=== PATIENT | male | born 1990 | race Two or more races ===

== ENCOUNTER 2025-04-05 13:07 | Emergency (ER) | payer MEDICAID, SELFPAY ==
[2025-04-05 13:46] VITALS: BP 128/73; PULSE 104; RESP 19; TEMP 36.8; O2SAT 96
[2025-04-05 13:54] VITALS: BMI 21.4
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
[2025-04-05] MEDS: FLUORESCEIN SOD 1 MG STRP RIGHT EYE ×2 (15:01→16:24)
[2025-04-05] MEDS: TETRACAINE PF OP SOL 0.5% 4 ML DRPETTE 1 DROP RIGHT EYE (15:01)
== END 2025-04-05 18:13 | disposition home or self-care (01) ==
PROVIDERS: Emergency Provider Emergency Medicine; PCP Family Medicine
DX: S05.01XA Injury of conjunctiva and corneal abrasion without foreign body, right eye, initial encounter (principal); W25.XXXA Contact with sharp glass, initial encounter
CPT/HCPCS: 99283

== ENCOUNTER 2025-04-06 16:19 | Emergency (ER) | payer MEDICAID, SELFPAY ==
[2025-04-06 16:27] VITALS: BP 123/61; PULSE 116; RESP 20; TEMP 37.6; O2SAT 96
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
[2025-04-06] MEDS: TOBRAMYCIN OP SOL 0.3% 5 ML BTL RIGHT EYE (16:39)
== END 2025-04-06 17:01 | disposition home or self-care (01) ==
LOC: SERX 16:52
PROVIDERS: Emergency Provider Emergency Medicine
DX: S05.01XA Injury of conjunctiva and corneal abrasion without foreign body, right eye, initial encounter (principal); X58.XXXA Exposure to other specified factors, initial encounter; Z59.00 Homelessness unspecified
CPT/HCPCS: 99283

== ENCOUNTER 2025-04-08 11:14 | Emergency (ER) | payer MEDICAID, SELFPAY ==
--- NOTE | 2025-04-08 11:22 | PD.EDADULT ---
ED General RME/HPI General Chief complaint: Eye Problems Stated complaint: HALFWAY CHECK Time Seen by Provider: 04/08/25 11:15 Arrival date/time: 04/08/25 11:14 RME / HPI RME / HPI narrative: 35-year-old male patient was brought in by law enforcement for [place] [facility] clearance. Apparently patient sustained a foreign body to the right eye about 3 days ago came to this emergency room, and was prescribed antibiotic eyedrops however patient was not able to pharmacy picking tech the medication according to him he went to the pharmacy and was told that the medication was not there. Patient is homeless. Patient continues to have redness to the right eye denies any blurry vision. No medication was taken prior to arrival. Related Data Previous Rx's ?Medication ?Instructions ?Recorded acetaminophen 325 mg tablet 650 mg (2 x 325 mg) PO Q6H PRN 08/28/23 (Tylenol) fever or pain #30 tabs acetaminophen-caffeine 500 mg-65 1 tab PO Q6H PRN pain #30 tabs 09/14/23 mg tablet (Excedrin Tension Headache) ibuprofen 600 mg tablet 600 mg PO Q6H #30 tabs 09/14/23 rizatriptan 10 mg tablet (Maxalt) See Rx Instructions PO .COMPLEX 09/19/23 #20 tabs ibuprofen 600 mg tablet 600 mg PO TID PRN pain #30 tabs 04/05/25 polymyxin B sulfate 10,000 1 drp ophthalmic (eye) Q3H 10 days 04/05/25 unit-trimethoprim 1 mg/mL eye drops #10 mL Allergies Allergy/AdvReac Type Severity Reaction Status Date / Time bee venom protein (honey bee) Allergy Severe Swelling Verified 04/06/25 16:24 of Lip/Tongue/Throat Review of Systems Review of Systems Narrative Review of Systems: Review of system reviewed and within normal limits except mentioned in HPI ED Exam Narrative Physical exam: VITAL SIGNS: Reviewed. GENERAL APPEARANCE: Alert and interactive, follows commands, no acute distress, HEAD AND FACE: Non-traumatic. ENT: PERRL, right injected conjunctiva, eyelid no trauma, Mucous membrane moist. NECK: Supple, nontender, no nuchal rigidity. CHEST: No tenderness, no crepitus, no paradoxical movement, no retractions. LUNGS: Clear, well ventilated, symmetric, no rales, no wheezing, no ronchi, no stridor, good breath sounds bilaterally. HEART: Regular rate, regular rhythm, no murmur, no gallops. ABDOMEN: Soft, positive bowel sounds, nondistended, no guarding, nontender, no rebound, no masses, RECTAL: Deferred. GENITAL: Deferred. NEUROLOGICAL: Gross motor function intact sensory function intact, Appropriate for age. MUSCULOSKELETAL: low back nontender, full range of motion. EXTREMITIES: Nontender, full range of motion. SKIN: Color pink, dry, no rash, no lacerations, no abrasions, no contusions. LYMPHATICS: Deferred. Course Quality Measures none Orders Category Date Time Status Visual Acuity NOW Care 04/08/25 12:32 Completed Fluorescein-Benoxin 0.3%-0.4% Med 04/08/25 11:20 Discontinued 2 drop BOTH EYES X1 ONE Florentin/Poly/Hc (Cortisporin) [Cortisporin Op Oint] Med 04/08/25 11:21 Discontinued See Dose Instructions RIGHT EYE X1 ONE Vital Signs Vital signs: Vital Signs Temperature 98.2 F 04/08/25 11:24 Pulse Rate 95 04/08/25 11:24 Respiratory Rate 18 04/08/25 11:24 Blood Pressure 122/67 04/08/25 11:24 Pulse Oximetry (%) 96 04/08/25 11:24 Oxygen Delivery Method Room Air 04/08/25 11:24 Discharge Plan Plan Patient Disposition: Custodial/Court/Law Discharge Disposition comment: Stable Prescriptions/Referrals Prescriptions/Med Rec: No Action acetaminophen [Tylenol] 325 mg tablet 650 mg PO Q6H PRN (Reason: fever or pain) Qty: 30 0RF polymyxin B sulf-trimethoprim 10,000 unit- 1 mg/mL drops 1 drp ophthalmic (eye) Q3H 10 Days Qty: 10 0RF Rx Instructions: while awake; do not exceed 6 doses in 24 hours ibuprofen 600 mg tablet 600 mg PO TID PRN (Reason: pain) Qty: 30 0RF Excedrin Tension Headache 500-65 mg tablet 1 tab PO Q6H PRN (Reason: pain) Qty: 30 0RF ibuprofen 600 mg tablet 600 mg PO Q6H Qty: 30 0RF rizatriptan [Maxalt] 10 mg tablet See Rx Instructions .ROUTE .COMPLEX Qty: 20 0RF Rx Instructions: take 1 tab at onset of headache; if no relief may repeat 1 tab after at least 2 hrs; max = 3 tabs/24 hr Referrals: No Primary/Family,Physician [Primary Care Provider] - In 1 week Problem List Clinical Impression: Corneal abrasion, Medical clearance for incarceration Patient/Caregiver Discharge Instructions Education Materials: ED Corneal Abrasion Additional Instructions: Thank you for the opportunity for serving you today. You are stable for discharged . You are advised to: Follow-up with your PCP in 1 to 2 days once you get [place] of [place] [facility] and asked for referral to eyelet maker Return to ED for worsening of symptoms Increase oral fluids Apply Cortisporin eye ointment to the right eye, 3 times a day for 7 days Print Language: Pashto LUIZ/LEONARDO Supervising Physician LUIZ/LEONARDO Supervising Physician: MD Car MDM Narrative MDM hospital course: 35-year-old male patient was brought in by law enforcement for [place] [facility] clearance. Apparently patient sustained a foreign body to the right eye about 3 days ago came to this emergency room, and was prescribed antibiotic eyedrops however patient was not able to pharmacy picking tech the medication according to him he went to the pharmacy and was told that the medication was not there. Patient is homeless. Patient continues to have redness to the right eye denies any blurry vision. No medication was taken prior to arrival. Eye was examined under the Sparks lamp. Proparacaine ophthalmic drop was administered to the eye and fluorescein strip was applied and was then illustrated under the Sparks lamp. Abrasion noted, at 6:00 o'clock, no foreign body noted, Eye was then irrigated with copious amounts of eye stream. Cortisporin eye ointment applied. Procedure was well tolerated by patient. Verbalized understanding. Patient is medically cleared for incarceration. Patient was advised to see support associate once out of [place] [facility]. In 1 to 2 days. Medication Administration(s) Medication Administration History Discontinued Medications Fluorescein Sodium/Benoxinate HCl (Fluorescein-Benoxin 0.3%-0.4% 1 Drop) 2 drop BOTH EYES X1 ONE Stop: 04/08/25 11:21 Last Admin: 04/08/25 12:53 Dose: 2 drop Documented By: GM Comments: GIVEN TO JARROD [employer] LOGGER AT THIS TIME. Neomycin/Polymyxin/Hydrocortisone (Florentin/Poly/Hc/Armando (Cortisporin) Op Oint 3.5 Gm Tube) 0 gm RIGHT EYE X1 ONE Stop: 04/08/25 11:22 Last Admin: 04/08/25 12:54 Dose: 1 appl Documented By: DRAKE Comments: APPLIED TO R EYE [id number]
[2025-04-08 11:24] VITALS: BP 122/67; PULSE 95; RESP 18; TEMP 36.8; O2SAT 96
[2025-04-08 12:05] VITALS: BMI 21.6
[2025-04-08 12:32] VITALS: BP 120/66; PULSE 60; RESP 16; TEMP 37.2; O2SAT 99
[2025-04-08] MEDS: FLUORESCEIN-BENOXIN 0.3%-0.4% 1 DROP 2 DROP BOTH EYES (12:53)
[2025-04-08] MEDS: NEO RIGHT EYE (12:54)
[2025-04-08] MEDS: BAC RIGHT EYE (12:54)
[2025-04-08] MEDS: [UNRECOGNIZED DRUG - OTHER] RIGHT EYE (12:54)
[2025-04-08] MEDS: POLY RIGHT EYE (12:54)
[2025-04-08 13:44] VITALS: BP 108/71; PULSE 68; RESP 15; TEMP 36.8; O2SAT 95
== END 2025-04-08 13:53 ==
PROVIDERS: Emergency Provider Emergency Medicine
DX: Z02.89 Encounter for other administrative examinations (principal); S05.01XA Injury of conjunctiva and corneal abrasion without foreign body, right eye, initial encounter; X58.XXXA Exposure to other specified factors, initial encounter; Z59.00 Homelessness unspecified
CPT/HCPCS: 99283; Z7110; A9270; Z7610

== ENCOUNTER 2025-05-11 17:11 | Emergency (ER) | payer MEDICAID, SELFPAY ==
[2025-05-11 17:12] VITALS: BMI 22.7
[2025-05-11 17:37] VITALS: BP 142/88; PULSE 89; RESP 20; TEMP 36.8; O2SAT 99
--- NOTE | 2025-05-11 17:43 | EDNOTE_ITS ---
ED Skin Abcess FB-RME/HPI General Chief complaint: Animal Bite Stated complaint: BIT BY SPIDER ON MY R KNEE. Time Seen by Provider: 05/11/25 17:42 Arrival date/time: 05/11/25 17:11 35-year-old male presents the emergency department today with complaints of spider bite to the right knee patient reports redness and mild swelling Limitations: no limitations Related Data Previous Rx's ?Medication ?Instructions ?Recorded acetaminophen 325 mg tablet 650 mg (2 x 325 mg) PO Q6H PRN 08/28/23 (Tylenol) fever or pain #30 tabs acetaminophen-caffeine 500 mg-65 1 tab PO Q6H PRN pain #30 tabs 09/14/23 mg tablet (Excedrin Tension Headache) ibuprofen 600 mg tablet 600 mg PO Q6H #30 tabs 09/14 rizatriptan 10 mg tablet (Maxalt) See Rx Instructions PO .COMPLEX 09/19/23 #20 tabs ibuprofen 600 mg tablet 600 mg PO TID PRN pain #30 t abs 04/05/25 clindamycin HCl 300 mg capsule 300 mg PO TID 7 days #2 1 caps 05/11/25 ibuprofen 600 mg tablet 600 mg PO Q6H #30 tabs 05/11 mupirocin 2 % topical ointment 1 applic topical TID 10 days #22 05/11/25 grams Allergies Allergy/AdvReac Type Severity Reaction Status Date / Time bee venom protein (honey bee) Allergy Severe Swelling Verified 05/11/25 17:15 of Lip/Tongue/Throat Review of Systems Review of Systems Systems Reviewed: All systems reviewed, normal except as documented Constitutional Constitutional: Reports system reviewed and no additional complaints, except as documented, Denies fever(s) and Denies headache(s) Eyes Eyes: Reports system reviewed and no additional complaints, except as documented and Denies blurry vision ENT Ears, Nose, Mouth, and Throat: Reports system reviewed and no additional complaints, except as documented, Denies headache(s), Denies nasal congestion and Denies nasal discharge Cardiovascular Cardiovascular: Reports system reviewed and no additional complaints, except as documented, Denies chest pain and Denies dyspnea Respiratory Respiratory: Reports system reviewed and no additional complaints, except as documented, Denies chest congestion, Denies cough and Denies dyspnea Gastrointestinal Gastrointestinal: Reports system reviewed and no additional complaints, except a s documented and Denies abdominal pain Integumentary/Breasts Skin/Breast: Reports system reviewed and no additional complaints, except as documented, Denies rash and Reports other (Mild erythema, right knee) Neurologic Neurologic: Reports system reviewed and no additional complaints, except as documented, Reports as per HPI and Denies headache(s) Past Medical History Past Medical History NEUROLOGIC: Negative Neurological Disorders CARDIAC: Negative Cardiac Disorders or Congestive Heart Failure RESPIRATORY: Negative Chronic Obstructive Pulmonary Disease (COPD) GENITOURINARY: Negative Renal Disease ENDOCRINE: Negative Diabetes Mellitus Type 1 or Diabetes Mellitus Type 2 PSYCHO/SOCIAL: Positive Psychiatric Problems, Schizophrenia, Recreational Drug Use, Bipolar Disorder and Depression Social History SMOKING STATUS: Heavy (> 1 pack/day) SUBSTANCE USE: marijuana and methamphetamine ED Exam General Limitations: Present no limitations General appearance: Present alert and in no apparent distress Head Head exam: Present atraumatic Eye Eye exam: Present normal appearance, PERRL and EOMI; Absent conjunctival injection ENT ENT exam: Present normal exam, normal oropharynx and mucous membranes moist Neck Neck exam: Present normal inspection, full ROM and trachea midline Chest Chest inspection: Present normal inspection and symmetric chest wall rise Respiratory Respiratory exam: Present normal lung sounds bilaterally Cardiovascular Cardiovascular exam: Present regular rate, normal rhythm and normal heart sounds Abdominal Exam Abdominal exam: Present soft and normal bowel sounds Extremities Exam Extremities exam: Present normal inspection and full ROM Back Exam Back exam: Present normal inspection and full ROM Neurological Exam Neurological exam: Present alert, oriented X3 and CN II-XII intact Psychiatric Psychiatric exam: Present normal affect and normal mood Skin Skin exam: Present warm, dry and other (Erythema right leg, right knee) Course Quality Measures none Vital Signs Vital signs: Vital Signs Temperature 98.3 F 05/11/25 17:37 Pulse Rate 89 05/11/25 17:37 Respiratory Rate 20 05/11/25 17:37 Blood Pressure 142/88 H 05/11/25 17:37 Pulse Oximetry (%) 99 05/11/25 17:37 Oxygen Delivery Method Room Air 05/11/25 17:37 O2 saturation 98% room air with normal Skin / Abscess / Foreign Body MDM Narrative MDM Narrative:: 35-year-old male presents the emergency department today with complaints of spider bite to the right knee patient reports redness and mild swelling On exam patient has what appears to be an insect bite to the right knee no evidence of abscess mild erythema. Patient has full range of motion of the right knee no erythema of the lower extremity past the knee Patient data External records reviewed:: [facility] previous records Clinical information provided by:: patient Social determinants that could affect healthcare access:: none Patient has the following chronic illnesses:: none How is presenting disease/condition affected by chronic disease/condition?: no chronic disease Evaluation data The following diagnostics were reviewed and interpreted by me:: other (specify) (na ) Lab and/or radiology exams considered but not ordered:: N/A Interpretation Summary: N/A Medications / Prescriptions Medications or Prescriptions considered but not ordered:: Given Medication administrations:: Given Consultations Consultation(s) initiated? (list below): No Diagnosis Skin/Abscess Differential Diagnosis: abscess of skin or subcutaneous tissue and cellulitis Most likely diagnosis given after review of the tests above:: Insect bite right knee Admission Indicated Admission indicated?: not indicated Admission Request Was there a request for admission?: No Disposition Plan Disposition Plan: Discharge Discharge Attestation Discharge Attestation: The patient and all family members were given an opportunity to ask questions and understood the discharge instructions. Discharge instructions specifically effects, indications for sooner follow up or return to the emergency department, and the expected course of current diagnosis. Patient condition: Stable Discharge Plan Plan Patient Disposition: HOME (Self Care) Discharge Disposition comment: Stable Prescriptions/Referrals Prescriptions/Med Rec: New clindamycin HCl 300 mg capsule 300 mg PO TID 7 Days Qty: 21 0RF mupirocin 2 % ointment 1 applic topical TID 10 Days Qty: 22 0RF ibuprofen 600 mg tablet 600 mg PO Q6H Qty: 30 0RF No Action acetaminophen [Tylenol] 325 mg tablet 650 mg PO Q6H PRN (Reason: fever or pain) Qty: 30 0RF ibuprofen 600 mg tablet 600 mg PO TID PRN (Reason: pain) Qty: 30 0RF Excedrin Tension Headache 500-65 mg tablet 1 tab PO Q6H PRN (Reason: pain) Qty: 30 0RF ibuprofen 600 mg tablet 600 mg PO Q6H Qty: 30 0RF rizatriptan [Maxalt] 10 mg tablet See Rx Instructions .ROUTE .COMPLEX Qty: 20 0RF Rx Instructions: take 1 tab at onset of headache; if no relief may repeat 1 tab after at least 2 hrs; max = 3 tabs/24 hr Problem List Clinical Impression: Insect bite of leg, right Patient/Caregiver Discharge Instructions Education Materials: ED Insect Bite Additional Instructions: Please follow up with your primary care doctor in the next 24-48hrs for any worsening symptoms return here immediately Print Language: Belarusian Stand Alone Forms: Valentina Award Info., Patient Portal Info Letter PA/[employer] TECHNICIAN Supervising Physician PA/[employer] TECHNICIAN Supervising Physician: Dr. doyle
== END 2025-05-11 17:51 | disposition home or self-care (01) ==
LOC: SERX 17:54
PROVIDERS: Emergency Provider Nurse Practitioner Primary Care
DX: S80.869A Insect bite (nonvenomous), unspecified lower leg, initial encounter (principal)
CPT/HCPCS: 99281